=== PATIENT | male | born 1995 | race Caucasian/White ===

== ENCOUNTER → 2017-05-19 | Outpatient (CLI) | payer MEDICAID ==
[2017-05-19 11:00] LABS: ANION GAP 11 (5-19); BLOOD UREA NITROGEN 15 mg/dL (7-20); CARBON DIOXIDE 29 mmol/L (22-30); CHLORIDE 102 mmol/L (98-107); CREATININE RESULT 0.89 mg/dL (0.52-1.25); Direct HDL 39 mg/dL (>40); GLUCOSE 89 mg/dL (75-110); POTASSIUM 4.5 mmol/L (3.6-5.0); SODIUM 141.7 mmol/L (137-145); TRIGLYCERIDES 118 mg/dL (<150)
[2017-05-19 11:11] LABS: DIRECT LDL 60 mg/dL (<100)
== END ==
LOC: OD 09:26
PROVIDERS: ATTEND Physician Assistant
DX: F31.5 Bipolar disorder, current episode depressed, severe, with psychotic features (principal); Z79.899 Other long term (current) drug therapy
CPT/HCPCS: 36415; 80048; 80061; 83036

== ENCOUNTER 2018-08-23 09:48 | Emergency (ER) | payer MEDICAID ==
[2018-08-23] MEDS ORDERED: DIPHENHYDRAMINE HCL 50 MG/ML VIAL ONE (10:18)
[2018-08-23] MEDS ORDERED: DEXAMETHASONE CONC 1 MG/ML SOLN ONE (10:18)
[2018-08-23] MEDS ORDERED: DEXAMETHASONE SOD PHOSPHATE INJ 4 MG/1 ML VIAL ONE ×2 (10:19→10:26)
[2018-08-23 10:55] LABS: ABSOLUTE EOSINOPHILS # (AUTO) 0.2 10^3/uL (0.0-0.6); ABSOLUTE LYMPHOCYTES (AUTO) 0.9 10^3/uL (0.5-4.7); ABSOLUTE MONOCYTES (AUTO) 0.5 10^3/uL (0.1-1.4); ABSOLUTE NEUT (AUTO) 6.3 10^3/uL (1.7-8.2); BASOPHILS % (AUTO) 0.2 % (0-2); EOSINOPHILS % (AUTO) 2.7 % (0-6); HEMATOCRIT 41.2 % (37.9-51.0); HEMOGLOBIN 14.5 g/dL (13.5-17.0); LYMPHOCYTES % (AUTO) 11.8 % (13-45); MEAN CORPUSCULAR HEMOGLOBIN 30.8 pg (27.0-33.4); MEAN CORPUSCULAR HGB CONC 35.3 g/dL (32.0-36.0); MEAN CORPUSCULAR VOLUME 87 fl (80-97); MONOCYTES % (AUTO) 6.6 % (3-13); PLATELET COUNT 206 10^3/uL (150-450); RED BLOOD COUNT 4.72 10^6/uL (4.35-5.55); RED CELL DISTRIBUTION WIDTH 12.1 % (11.5-14.0); SEGMENTED NEUTROPHILS % (AUTO) 78.7 % (42-78); TOTAL CELLS COUNTED % (AUTO) 100 %
[2018-08-23 11:00] LABS: APPEARANCE,URINE SLIGHTLY-CLOUDY; BILIRUBIN,URINE NEGATIVE (NEGATIVE); COLOR,URINE YELLOW; GLUCOSE, URINE NEGATIVE (NEGATIVE); KETONES,URINE NEGATIVE (NEGATIVE); LEUKOCYTE ESTERASE,URINE NEGATIVE (NEGATIVE); NITRITE,URINE NEGATIVE (NEGATIVE); PROTEIN,URINE 30 mg/dL (NEGATIVE)
[2018-08-23] MEDS ORDERED: NORMAL SALINE 1000 ML 1,000 ML IV ONE (11:10)
[2018-08-23 11:13] LABS: ACETAMINOPHEN 25 ug/mL (10-30); ALANINE AMINOTRANSFERASE 31 U/L (21-72); ALBUMIN 4.4 g/dL (3.5-5.0); ALKALINE PHOSPHATASE 58 U/L (38-126); ANION GAP 12 (5-19); ASPARTATE AMINO TRANSFERASE 27 U/L (17-59); BILIRUBIN,DIRECT 0.1 mg/dL (0.0-0.4); BILIRUBIN,TOTAL 0.3 mg/dL (0.2-1.3); BLOOD UREA NITROGEN 11 mg/dL (7-20); CALCIUM 9.7 mg/dL (8.4-10.2); CARBON DIOXIDE 28 mmol/L (22-30); CHLORIDE 104 mmol/L (98-107); GLUCOSE 102 mg/dL (75-110); POTASSIUM 3.9 mmol/L (3.6-5.0); SODIUM 144.4 mmol/L (137-145); TOTAL PROTEIN 7.1 g/dL (6.3-8.2)
[2018-08-23 11:15] LABS: ALCOHOL < 10 mg/dL (NONE DETECTED); SALICYLATE < 1.0 mg/dL (2.0-20.0)
[2018-08-23 11:24] LABS: URINE AMPHETAMINES SCREEN NEGATIVE; URINE BARBITURATES SCREEN NEGATIVE; URINE BENZODIAZEPINES SCREEN NEGATIVE; URINE COCAINE SCREEN NEGATIVE; URINE MARIJUANA (THC) SCREEN NEGATIVE; URINE METHADONE SCREEN NEGATIVE; URINE PHENCYCLIDINE SCREEN NEGATIVE
--- NOTE | 2018-08-23 13:22 | EKG REPORT ---
SEVERITY:- NORMAL ECG - SINUS RHYTHM : Confirmed by: Dejuan Powell MD 23-Aug-2018 13:21:15
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
[2018-08-23] MEDS ORDERED: ZIPRASIDONE HCL 40 MG CAPSULE PO SCH (18:00)
[2018-08-23] MEDS ORDERED: BENZTROPINE MESYLATE 1 MG TABLET PO SCH (18:00)
[2018-08-23] MEDS ORDERED: BUSPIRONE HCL 10 MG TABLET PO SCH (18:00)
[2018-08-24] MEDS ORDERED: DIPHENHYDRAMINE HCL 50 MG CAPSULE PO ONE (01:51)
[2018-08-24 08:50] VITALS: BP 138/70
[2018-08-24] MEDS ORDERED: OXCARBAZEPINE 150 MG TABLET PO SCH (10:00)
[2018-08-24] MEDS ORDERED: FAMOTIDINE 20 MG TABLET PO SCH (10:00)
--- NOTE | 2018-08-28 14:48 | PSYCHOLOGICAL NOTE ---
Psych Note - Psych Note Date seen by psych provider: 08/24/18 Psych Note: Reason Consult: Homicidal ideation Consent permissions: mother Browning, Patient is a 22-year-old male who was brought in by EMS and taken directly for psych evaluation. Patient is observed pacing and highly agitated. Patient states that he just wants to go home. Patient was accepted by [facility] this morning. Medication recommendations per [facility]'s contracted psychiatrist Geodon 80 mg twice daily Trileptal 300 mg daily Cogentin 1 mg twice daily BuSpar 15 mg 3 times daily Diagnosis Bipolar disorder per history provided by patient's mother ADHD per history provided by patient's mother IDD per history provided by patient's mother Impression\plan: Patient is recommended for to need IVC. Patient was accepted to [facility] transport has been requested. patient discloses thoughts of wanting to harm his family. Patient wrote in his journal about fantasizing about stabbing his mom's I with a scissors. Patient is noted to have some behavioral outbursts over the years however they seem to correlate when his dad is not here to help him. Clinician notes patient's father is currently in ICU. Patient reportedly made suicidal gesture and comments towards family also. Dr. Greene was consulted and the care management of this patient; attending physician is agreement with recommendations and disposition.
== END 2018-08-24 08:50 ==
LOC: ER 09:48
DX: T78.40XA Allergy, unspecified, initial encounter (principal); R51 Headache; R06.02 Shortness of breath; R45.851 Suicidal ideations; R45.850 Homicidal ideations; R45.4 Irritability and anger; Z79.899 Other long term (current) drug therapy
CPT/HCPCS: 93005; 99285; 36415; 80307 ×4; 85025; 80053; 81001; 93010; J3490 ×3; J1100; J1200; J7030

== ENCOUNTER 2019-03-20 21:42 | Emergency (ER) | payer MEDICAID ==
--- NOTE | 2019-03-20 23:03 | ER Document Report ---
ED General - General Chief Complaint: Psych Problem Stated Complaint: IVC Time Seen by Provider: 03/20/19 22:53 Primary Care Provider: TARIQ BAUTISTA PA-C [Primary Care Provider] - Follow up as needed Notes: Patient is a pleasant 23-year-old male brought in on involuntary commitment paperwork due to killing a cat and then videotaping and placing on social media. Patient also mentions that he sometimes hears demons but he only hears he is at home. He says I do not follow him around. He does have history of mental disability. He says he just want to see if the cat could land on all 4 legs. He says that when he threw the cat down the office he got hurt and had trouble walking and therefore he stepped on the cat's neck to kill it because he did not want it to suffer. Patient admits that he did videotape this post on social media. According to outside history patient is friends were unhappy about this and then the patient threatened suicide. Patient currently says he is not suicidal. TRAVEL OUTSIDE OF THE [place] IN LAST 30 DAYS: No - Related Data Allergies/Adverse Reactions: divalproex sodium [From Depakote] Allergy (Verified 12/03/14 16:49) quetiapine fumarate [From Seroquel] Allergy (Verified 12/03/14 16:49) risperidone [From Risperdal] Allergy (Verified 12/03/14 16:49) Past Medical History - Social History Smoking Status: Unknown if Ever Smoked Frequency of alcohol use: None Drug Abuse: None Family History: Reviewed & Not Pertinent Patient has suicidal ideation: No Patient has homicidal ideation: Yes Renal/ Medical History: Denies: Hx Peritoneal Dialysis Psychiatric Medical History: Reports: Hx Attention Deficit Hyperactivity Disorder, Hx Bipolar Disorder, Hx Obsessive Compulsive Disorder, Hx Schizophrenia - Immunizations Immunizations up to date: Yes Hx Diphtheria, Pertussis, Tetanus Vaccination: Yes Review of Systems - Review of Systems Notes: My Normal Review Basic REVIEW OF SYSTEMS: CONSTITUTIONAL : Denies fever, chills, or sweats. Denies recent illness. EENT: Denies eye, ear, throat, or mouth pain or symptoms. Denies nasal or sinus congestion. CARDIOVASCULAR: Denies chest pain. RESPIRATORY: Denies cough, cold, or chest congestion. Denies shortness of breath, difficulty breathing, or wheezing. GASTROINTESTINAL: Denies abdominal pain. Denies nausea, vomiting, or diarrhea. MUSCULOSKELETAL: Denies neck or back pain or joint pain or swelling. SKIN: Denies rash or skin lesions. NEUROLOGICAL: Denies altered mental status or loss of consciousness. Denies headache. Denies weakness or paralysis or loss of use of either side. Denies problems with gait or speech. Denies sensory or motor loss. ALL OTHER SYSTEMS REVIEWED AND NEGATIVE. Physical Exam - Vital signs Vitals: Temp Pulse Resp BP Pulse Ox 98.5 F 107 H 18 131/70 H 96 03/20/19 21:58 03/20/19 21:58 03/20/19 21:58 03/20/19 21:58 03/20/19 21:58 - Notes Notes: General Appearance: Well nourished, alert, cooperative, no acute distress, no obvious discomfort. Well-appearing Vitals: reviewed, See vital signs table. Head: no swelling or tenderness to the head Eyes: PERRL, EOMI, Conjuctiva clear Mouth: No decreasd moisture Lungs: No wheezing, No rales, No rhonci, No accessory muscle use, good air exchange bilaterally. Heart: Normal rate, Regular rythm, No murmur, no rub Abdomen: Normal BS, soft, No rigidity, No abdominal tenderness, No guarding, no rebound, no abdominal masses, no organomegaly Extremities: strength 5/5 in all extremities, good pulses in all extremities, no swelling or tenderness in the extremities, no edema. Skin: warm, dry, appropriate color, no rash Neuro: speech clear, oriented x 3, normal affect, responds appropriately to questions. Course - Re-evaluation Re-evalutation: 03/21/19 01:56 Patient obviously has some history of delusions that hears demons at home. Think a lot of his behavioral issues stem from a misunderstanding due to a decrease in his mental capacity. Patient overall is medically stable for mental health evaluation. Dictation of this chart was performed using voice recognition software; therefore, there may be some unintended grammatical errors. 03/21/19 01:57 03/21/19 01:57 - Vital Signs Vital signs: Temp Pulse Resp BP Pulse Ox 98.5 F 107 H 18 131/70 H 96 03/20/19 21:58 03/20/19 21:58 03/20/19 21:58 03/20/19 21:58 03/20/19 21:58 - Laboratory Result Diagrams: 03/20/19 23:56 03/20/19 23:56 Laboratory results interpreted by me: 03/20/19 03/20/19 23:56 23:56 Glucose 113 H Urine Urobilinogen 2.0 H Salicylates < 1.0 L Acetaminophen < 10 L - EKG Interpretation by Me Additional EKG results interpreted by me: 03/21/19 00:36 EKG is reviewed and interpreted by me. EKG shows sinus rhythm with a rate of [address] segment elevation or depression. No ischemic T wave inversions. SD interval, QRS duration, QT intervals are within normal range. Old EKG for comparison is from August 23, 2018. Discharge - Discharge Clinical Impression: Hallucination Condition: Stable Disposition: PSYCH HOSP/UNIT Referrals: TARIQ BAUTISTA PA-C [Primary Care Provider] - Follow up as needed
[2019-03-21 00:13] LABS: ABSOLUTE EOSINOPHILS # (AUTO) 0.2 10^3/uL (0.0-0.6); ABSOLUTE MONOCYTES (AUTO) 0.5 10^3/uL (0.1-1.4); ABSOLUTE NEUT (AUTO) 5.7 10^3/uL (1.7-8.2); BASOPHILS % (AUTO) 0.2 % (0-2); EOSINOPHILS % (AUTO) 2.4 % (0-6); HEMATOCRIT 41.7 % (37.9-51.0); HEMOGLOBIN 14.4 g/dL (13.5-17.0); LYMPHOCYTES % (AUTO) 13.3 % (13-45); MEAN CORPUSCULAR HEMOGLOBIN 30.6 pg (27.0-33.4); MEAN CORPUSCULAR HGB CONC 34.6 g/dL (32.0-36.0); MEAN CORPUSCULAR VOLUME 88 fl (80-97); MONOCYTES % (AUTO) 7.3 % (3-13); PLATELET COUNT 237 10^3/uL (150-450); RED BLOOD COUNT 4.72 10^6/uL (4.35-5.55); RED CELL DISTRIBUTION WIDTH 12.2 % (11.5-14.0); SEGMENTED NEUTROPHILS % (AUTO) 76.8 % (42-78); TOTAL CELLS COUNTED % (AUTO) 100 %; WHITE BLOOD COUNT 7.4 10^3/uL (4.0-10.5)
[2019-03-21 00:19] LABS: AMORPHOUS SEDIMENT,URINE TRACE /HPF; APPEARANCE,URINE SLIGHTLY-CLOUDY; BILIRUBIN,URINE NEGATIVE (NEGATIVE); COLOR,URINE YELLOW; GLUCOSE, URINE NEGATIVE (NEGATIVE); KETONES,URINE NEGATIVE (NEGATIVE); LEUKOCYTE ESTERASE,URINE NEGATIVE (NEGATIVE); NITRITE,URINE NEGATIVE (NEGATIVE); PROTEIN,URINE NEGATIVE (NEGATIVE); URINE SPECIFIC GRAVITY 1.028
[2019-03-21 00:25] LABS: ALANINE AMINOTRANSFERASE 65 U/L (21-72); ALBUMIN 4.4 g/dL (3.5-5.0); ALKALINE PHOSPHATASE 57 U/L (38-126); ANION GAP 11 (5-19); ASPARTATE AMINO TRANSFERASE 33 U/L (17-59); BILIRUBIN,DIRECT 0.2 mg/dL (0.0-0.4); BILIRUBIN,TOTAL 0.3 mg/dL (0.2-1.3); BLOOD UREA NITROGEN 20 mg/dL (7-20); CALCIUM 9.8 mg/dL (8.4-10.2); CARBON DIOXIDE 26 mmol/L (22-30); CHLORIDE 107 mmol/L (98-107); GLUCOSE 113 mg/dL (75-110); POTASSIUM 3.9 mmol/L (3.6-5.0); SODIUM 143.7 mmol/L (137-145)
[2019-03-21 00:26] LABS: ACETAMINOPHEN < 10 ug/mL (10-30); ALCOHOL < 10 mg/dL (NONE DETECTED); SALICYLATE < 1.0 mg/dL (2.0-20.0)
[2019-03-21 00:32] LABS: URINE AMPHETAMINES SCREEN NEGATIVE; URINE BARBITURATES SCREEN NEGATIVE; URINE MARIJUANA (THC) SCREEN NEGATIVE; URINE PHENCYCLIDINE SCREEN NEGATIVE
[2019-03-21 00:36] LABS: URINE BENZODIAZEPINES SCREEN NEGATIVE
[2019-03-21 00:41] LABS: URINE METHADONE SCREEN NEGATIVE
[2019-03-21 01:02] LABS: URINE COCAINE SCREEN NEGATIVE
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
--- NOTE | 2019-03-21 09:51 | ER Document Report ---
Doctor's Note Notes: 03/21/19 09:50 Rounds: Chart reviewed and patient interviewed. Patient supposedly has a history of bipolar disorder and is intellectually challenged. He killed a cat for no particularly good reason. Patient's lab studies are all essentially normal. Vital signs are all essentially normal. Patient appears to be medicall y stable for transfer or discharge. Bartolome Alves MD
[2019-03-21] MEDS ORDERED: BENZTROPINE MESYLATE 1 MG TABLET PO SCH (12:15)
[2019-03-21] MEDS ORDERED: OLANZAPINE 5 MG TABLET PO SCH (12:15)
[2019-03-21] MEDS ORDERED: BUSPIRONE HCL 10 MG TABLET PO SCH (12:15)
[2019-03-21] MEDS ORDERED: LITHIUM CARBONATE 300 MG CAPSULE PO SCH (12:15)
[2019-03-21] MEDS ORDERED: OXCARBAZEPINE 150 MG TABLET PO SCH (14:00)
[2019-03-21 15:47] VITALS: BP 120/70
--- NOTE | 2019-03-21 23:03 | EKG REPORT ---
SEVERITY:- BORDERLINE ECG - SINUS RHYTHM PROBABLE LEFT ATRIAL ABNORMALITY INFERIOR Q WAVES, PROBABLY NORMAL VARIATION ST ELEV, PROBABLE NORMAL EARLY REPOL PATTERN : Confirmed by: Maxim Foster 21-Mar-2019 23:02:52
== END 2019-03-21 15:47 ==
LOC: ER 21:42
DX: Z04.6 Encounter for general psychiatric examination, requested by authority (principal); R44.0 Auditory hallucinations; R45.6 Violent behavior; Z88.8 Allergy status to other drugs, medicaments and biological substances
CPT/HCPCS: 93005; 99285; 36415; 80307 ×4; 80178; 85025; 80053; 81001; 93010; J3490 ×4